=== PATIENT | male | born 1970 | race Caucasian/White ===

== ENCOUNTER 2020-04-20 16:32 | Emergency (ER) | payer OTHER ==
[2020-04-20 16:37] VITALS: BP 165/88; PULSE 93; RESP 18; TEMP 98.2
--- NOTE | 2020-04-20 17:00 | ED ---
General Adult HPI - General Chief complaint: Recheck/Abnormal Lab/Rx Stated complaint: Covid Exposure Time Seen by Provider: 04/20/20 16:40 Source: patient, RN notes reviewed Mode of arrival: ambulatory Limitations: no limitations - History of Present Illness Initial comments: 49-year-old male without any significant past medical history presents to the emergency department for covid testing. Patient states his work is making him get tested before he can go back. He states that his friend's dad's girlfriend had Covid and he was exposed to his friend. Patient has not been around the source. Patient does not have any symptoms. He denies cough shortness of breath nausea vomiting diarrhea, fevers. He is well-appearing. Patient has no other complaints at this time including shortness of breath, chest pain, abdominal pain, nausea or vomiting, headache, or visual changes. - Related Data Allergies Allergy/AdvReac Type Severity Reaction Status Date / Time No Known Allergies Allergy Verified 04/20/20 16:37 Review of Systems ROS Statement: Those systems with pertinent positive or pertinent negative responses have been documented in the HPI. ROS Other: All systems not noted in ROS Statement are negative. Past Medical History Past Medical History: No Reported History History of Any Multi-Drug Resistant Organisms: None Reported Past Surgical History: No Surgical Hx Reported Past Psychological History: No Psychological Hx Reported Smoking Status: Current every day smoker Past Alcohol Use History: None Reported Past Drug Use History: None Reported General Exam Limitations: no limitations General appearance: alert, in no apparent distress Head exam: Present: atraumatic, normocephalic, normal inspection Eye exam: Present: normal appearance, PERRL, EOMI. Absent: scleral icterus, conjunctival injection, periorbital swelling ENT exam: Present: normal exam, mucous membranes moist Neck exam: Present: normal inspection. Absent: tenderness, meningismus, lymphadenopathy Respiratory exam: Present: normal lung sounds bilaterally. Absent: respiratory distress, wheezes, rales, rhonchi, stridor Cardiovascular Exam: Present: regular rate, normal rhythm, normal heart sounds. Absent: systolic murmur, diastolic murmur, rubs, gallop, clicks Course Vital Signs 04/20/20 16:33 Temperature 98.2 F Pulse Rate 93 Respiratory 18 Rate Blood Pressure 165/88 O2 Sat by Pulse 100 Oximetry Medical Decision Making - Medical Decision Making Vitals are stable. Covid was tested, results pending. Patient will follow up on results. He will return for any worsening symptoms. Disposition Clinical Impression: Encounter for laboratory testing for COVID-19 virus Disposition: HOME SELF-CARE Condition: Good Instructions (If sedation given, give patient instructions): Normal Exam (ED) Additional Instructions: Please follow up on results. Please return to the emergency room for any worsening symptoms. Is patient prescribed a controlled substance at d/c from ED?: No Referrals: Jerrica Hale MD [REFERRING] - 1-2 days Time of Disposition: 16:59
== END 2020-04-20 17:27 | disposition home or self-care (01) ==
LOC: EC 16:32
DX: Z03.818 Encounter for observation for suspected exposure to other biological agents ruled out (principal); F17.200 Nicotine dependence, unspecified, uncomplicated
CPT/HCPCS: 99283; U0003

== ENCOUNTER 2021-05-19 17:28 | Emergency (ER) | payer OTHER ==
[2021-05-19 17:35] VITALS: TEMP 97.9
[2021-05-19 17:36] VITALS: BP 168/101; PULSE 66; RESP 18
[2021-05-19] MEDS ORDERED: MORPHINE SULFATE 4 MG/ML SYRINGE IM STA (17:53)
[2021-05-19] MEDS ORDERED: FLUORESCEIN STRIPS 1 MG STRIP RIGHT EYE ONE (17:55)
[2021-05-19] MEDS ORDERED: PROPARACAINE 0.5% OPHTH DROPS 15 ML BTL RIGHT EYE STA (17:55)
--- NOTE | 2021-05-19 17:58 | ED ---
ENT HPI - General Source: patient, EMS, RN notes reviewed, old records reviewed Limitations: no limitations - History of Present Illness MD complaint: other (Right thigh pain and possible foreign body) -: days(s) (3) Severity: severe Severity scale (1-10): 10 Quality: burning, sharp Consistency: constant Improves with: none <Maurilio Goodwin - Last Filed: 05/19/21 19:52> <Rony Marie - Last Filed: 05/19/21 20:04> - General Chief complaint: ENT Stated complaint: foreign body rt eye - History of Present Illness Initial comments: 50-year-old white male, alert and oriented 4, presents to the emergency room after being sent from [facility] emergency room with right eye pain. 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 He states he was wearing contacts at the time and did take them out and they were not damaged. He states that he has not put contacts in since the incident. He states that its been progressively getting more painful. He did not seek medical treatment until today. Patient states he's been unable to see anything out of that eye since yesterday. It is very sensitive to light and is now causing him to have a headache. There is a creamy white purulent drainage matting his lashes. He states that they did use proparacaine drops with no relief. He denies any other injuries. States pain is 10 out of 10. Patient states he did not come to the hospital at that time because he is "stubborn" and he lives alone did not want to call for help. He states his tetanus shot has been updated within the last 10 years. (Maurilio Goodwin) - Related Data Allergies Allergy/AdvReac Type Severity Reaction Status Date / Time No Known Allergies Allergy Verified 05/19/21 17:34 Review of Systems ROS Other: All systems not noted in ROS Statement are negative. <Maurilio Goodwin - Last Filed: 05/19/21 19:52> ROS Other: All systems not noted in ROS Statement are negative. <Rony Marie - Last Filed: 05/19/21 20:04> ROS Statement: Those systems with pertinent positive or pertinent negative responses have been documented in the HPI. Past Medical History Past Medical History: No Reported History History of Any Multi-Drug Resistant Organisms: None Reported Past Surgical History: No Surgical Hx Reported Past Psychological History: No Psychological Hx Reported Smoking Status: Current every day smoker Past Alcohol Use History: None Reported Past Drug Use History: Marijuana <Maurilio Goodwin - Last Filed: 05/19/21 19:52> General Exam Limitations: no limitations General appearance: alert, in no apparent distress Head exam: Present: atraumatic, normocephalic, normal inspection Pupils: Present: other (complete opacity of the right cornea with chemosis and conjunctivitis; creamy white discharge; right eye pH 8) Expanded Eyelids: Normal Inspection: Left, Erythema: Right, Swelling: Right Pupils: Regular, Round: Left (Unable to visualize right pupil), Reactive: Left Sclera/Conjunctival: Normal Inspection: Left, Injection: Right (Chemosis, cornea white), Exudate: Right Anterior chamber: Normal Inspection: Left ENT exam: Present: normal exam, normal oropharynx, mucous membranes moist Neck exam: Present: normal inspection, full ROM. Absent: tenderness, meningismus, lymphadenopathy, thyromegaly Respiratory exam: Present: normal lung sounds bilaterally. Absent: respiratory distress, wheezes, rales, rhonchi, stridor Cardiovascular Exam: Present: regular rate, normal rhythm, normal heart sounds. Absent: systolic murmur, diastolic murmur, rubs, gallop, clicks GI/Abdominal exam: Present: soft, normal bowel sounds. Absent: distended, tenderness, guarding, rebound, rigid Extremities exam: Present: normal inspection, full ROM, normal capillary refill. Absent: tenderness, pedal edema, joint swelling, calf tenderness Back exam: Present: full ROM. Absent: tenderness, CVA tenderness (R), CVA tenderness (L), muscle spasm, paraspinal tenderness, vertebral tenderness Neurological exam: Present: alert, oriented X3, CN II-XII intact Psychiatric exam: Present: anxious Skin exam: Present: warm, dry, intact, normal color. Absent: rash, cyanosis, diaphoretic, erythema, petechiae, pallor, mottled <Maurilio Goodwin - Last Filed: 05/19/21 19:52> Course - Reevaluation(s) Time: 19:41 <Maurilio Goodwin Last Filed: 05/19/21 19:52> Vital Signs 05/19/21 17:30 Temperature 97.9 F Pulse Rate 66 Respiratory 18 Rate Blood Pressure 168/101 O2 Sat by Pulse 99 Oximetry - Reevaluation(s) Reevaluation #1: 05/19/21 19:41 Patient states that he cannot go to [facility] the ambulance. He needs to go home. His phone get his things in order and that someone know that he is going to the hospital. He states he will probably be able to go there later tonight. He needs to get a ride from a friend which she is trying to call right now. Patient wants to sign out AGAINST MEDICAL ADVICE. Explained to him that he may have permanent vision loss and worse prognosis if he leaves. Patient insisted that he does not want to stay or be transferred by ambulance. He is alert and oriented 4 does not appear to be under the influence of any narcotics or alcohol. He is ambulatory in the room with a steady gait. RN attempting to reach his emergency contact with the patient. Dr. Marie aware. (Maurilio Goodwin) Medical Decision Making <Maurilio Goodwin - Last Filed: 05/19/21 19:52> <Rony Marie - Last Filed: 05/19/21 20:04> - Medical Decision Making CT of the orbits show a preseptal right side periorbital edema but no evidence of foreign body. Globes are symmetric no evidence of a retro-orbital mass. Ophthalmology at bedside states severe corneal ulceration. He will be transferred to [facility] per Dr. Marie. Patient wants to leave AGAINST MEDICAL ADVICE and not be transferred to [facility]. Had an extensive conversation with patient regarding possible int erventions that can be provided to him with no drooling and treatment. Patient states that he is to take care of things at home, get his phone and notify family. Offered to notify patients family for him and the nurse contacted his emergency contact. Patient states that he may be able to drive himself to the hospital later that he needs to take care of some things first. Patient understands the risks of permanent vision loss or worsening symptoms. He signed AMA paperwork. (Maurilio Goodwin) Mike the nurse practitioner came and got me so she saw the patient I evaluated t he patient I he was unable to tolerate me fully opening up but it appeared as though the cornea was completely opacified with chemosis up into the edges of the opacification. I immediately called Dr. Cha and he wanted the patient after CAT scan he was stated after the CAT scan was then he come in immediately. Patient states he is up-to-date in his tetanus. Patient states that this occurred on Tuesday he lost his vision early yesterday and it became completely opacified early yesterday he stated he didn't come in but did not and would not given expiration as to why he didn't come in yesterday. Dr. Cha came into the emergency department to see the patient wanted the patient immediately transferred to [facility] he contacted the scabbler at [facility] they said they wanted the patient be transferred ER to ER I contacted the emergency Department accepted the patient I will begin to inform the patient he absolutely refuses to leave and be transferred by ambulance. Patient states he had to go home and get some things as well as his phone and he refused to stay I told him he was likely to lose his vision if he didn't follow up immediately and he again absolutely refused to stay. Patient states he will try to drive himself or have someone drive him there tonight. (Rony Marie) Disposition Is patient prescribed a controlled substance at d/c from ED?: No Time of Disposition: 19:44 <Maurilio Goodwin - Last Filed: 05/19/21 19:52> <Rony Marie - Last Filed: 05/19/21 20:04> Clinical Impression: Corneal ulcer of right eye Disposition: Left Against Medical Advice Condition: Fair Referrals: None,Stated [Primary Care Provider] - 1-2 days
--- NOTE | 2021-05-19 18:38 | CT ---
EXAMINATION TYPE: CT orbits wo con DATE OF EXAM: 05/19/2021 COMPARISON: None HISTORY: right eye pain, redness, swelling. r/o fb. CT DLP: 607.1 mGycm Automated exposure control for dose reduction was used. Images obtained from the bottom of the maxilla to the top of the frontal sinuses without contrast. The maxilla is intact. There is no evidence of orbital blowout fracture. Nasal bone is intact. Orbita l margins are intact. There is preseptal soft tissue swelling at the right orbit. This measures 7 mm in thickness. The globes are symmetric. There is no evidence of retro-orbital mass. I see no radiopaq ue foreign body. There is fairly normal aeration of the paranasal sinuses. IMPRESSION: There is preseptal right side periorbital edema. No evidence of a foreign body.
[2021-05-19] MEDS ORDERED: TOBRAMYCIN 0.3% OPHTH OINT 3.5 GM TUBE RIGHT EYE STA (19:23)
--- NOTE | 2021-05-20 15:07 | CONS ---
CONSULTATION DATE OF SERVICE: May 19, 2021 I saw the patient on May 19, at 7 p.m. in the emergency room. CHIEF COMPLAINT: Loss of vision right eye since Tuesday. 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 He was using a blower. The patient states that he had several corneal ulcers following contact lens use in both eyes, but nothing recent. Medical history reviewed. CT scan of the orbit is reviewed. No foreign body. Eye examination: Vision is no light perception right eye; 20/60, left eye. Extraocular motility full. Right upper and lower lid shows 1+ edema. Conjunctiva shows severe ecchymosis with swelling and subconjunctival hemorrhage. The cornea is completely opaque and sloughed with possible perforation. Unable to see any anterior chamber structure. Extraocular motility was within normal range. ASSESSMENT: Right severe corneal ulcer with sloughing off the cornea and possible perforation. PLAN: I contacted [facility]. They stated not to start any antibiotic drops because they were going to do a culture for Pseudomonas fungus. The patient was instructed to go to [place] immediately for culture and to be treated by a corneal specialist due to the gravity of the case. A CT scan of the orbit was negative for intra-ocular foreign body. Thank you for this consultation. MMODL / IJN: [id number] /
== END 2021-05-19 19:45 | disposition left against medical advice (07) ==
LOC: EC 17:28
DX: H16.001 Unspecified corneal ulcer, right eye (principal); F17.200 Nicotine dependence, unspecified, uncomplicated
CPT/HCPCS: 99284; 96372; 87070; 87205; 70480; J2270